=== PATIENT | female | born 1955 | race Caucasian/White ===

== ENCOUNTER 2019-10-30 06:41 | Emergency (ER) | payer OTHER, SELFPAY ==
--- NOTE | ~2019-10-30 | US_ITS ---
EXAMINATION: US venous doppler [facility] DATE: 10/30/2019 08:01 INDICATION: Left lower limb pain. TECHNIQUE: Grayscale ultrasound images without and with compression and Doppler ultrasound images of the left lower extremity veins were obtained. COMPARISON: Ultrasound 12/04/2014 FINDINGS: The visualized portions of left common femoral vein, profunda (deep) femoral vein, femoral vein, popl iteal vein, peroneal veins, posterior tibial veins, and greater saphenous vein outflow are patent. IMPRESSION: 1. No deep venous thrombosis. Reviewed, dictated and finalized at location A. 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
[2019-10-30 06:46] VITALS: BP 173/109; PULSE 88; RESP 18; TEMP 36.6; O2SAT 100
--- NOTE | 2019-10-30 07:15 | ED.LOWEXIN ---
HPI - Extremity Injury (Lower) General Chief Complaint: Extremity Injury, Lower Stated Complaint: pain left thigh Time Seen by Provider: 10/30/19 06:58 History of Present Illness HPI Narrative: Left thigh pain since yesterday. Located in the lateral thigh from the hip to the knee. No trauma. No change in activity. She tried tylenol without relief. SHe recently started on a low potassium diet . Related Data Home Medications Medication Instructions Recorded Confirmed hydrochlorothiazide 25 mg tablet 25 mg PO DAILY 09/15/19 losartan 100 mg tablet 100 mg PO DAILY 09/15/19 triamcinolone acetonide 0.1 % 1 applic TOPICAL BID 09/15/19 topical ointment Allergies Allergy/AdvReac Type Severity Reaction Status Date / Time No Known Allergies Allergy Verified 10/30/19 07:18 Review of Systems Review of Systems: All systems reviewed & are unremarkable except as noted in HPI and below Constitutional: Constitutional: Denies fever(s) and Denies weakness Cardiovascular: Cardiovascular: Denies chest pain Respiratory: Respiratory: Denies dyspnea Gastrointestinal: Gastrointestinal: Denies abdominal pain and Denies nausea Musculoskeletal: Musculoskeletal: Denies back pain and Denies arthralgias Neurologic: Denies numbness and Denies weakness [facility] Family History Family History (Updated 08/30/18 @ 10:35 by DOCTOR UNKNOWN) Mother Family history of lung cancer Social History Social History Smoking status: Former smoker Second hand tobacco smoke exposure: No Smoking end date: 09/03/97 Alcohol intake: current Gender identity (if verbalized by the patient): Female Exam Const: General: healthy appearing, no acute distress and alert Nutritional Appearance: well nourished Orientation/consciousness: patient oriented x3 HENMT: Head: normal to inspection Resp: Effort & Inspection: normal respiratory effort Cardio: Other: 2+ left DP GI: GI Palp: Yes Soft to palpation and No Tenderness to palpation present (GI) Skin: General skin exam: normal color Neuro: General: patient oriented x3, moves all extremities and no focal motor deficits Speech: normal speech Extrem: Other: left lateral thigh tenderness Course Vital Signs Vital signs: Vital Signs Temperature 36.6 C 10/30/19 06:46 Pulse Rate 88 10/30/19 06:46 Respiratory Rate 18 10/30/19 06:46 Blood Pressure 173/109 H 10/30/19 06:46 Pulse Oximetry 100 10/30/19 06:46 Temperature 36.6 C 10/30/19 06:46 Pulse Rate 82 10/30/19 08:45 Respiratory Rate 17 10/30/19 08:45 Blood Pressure 152/97 H 10/30/19 08:45 Pulse Oximetry 100 10/30/19 08:45 MDM - Extremity Injury (Lower) MDM Narrative Medical decision making narrative: DVT, IT band, Arthritis, Cramps, hypokalemia, other Medical Records Attestation: I reviewed the patient's medical records. Lab Data Attestation: I reviewed the patient's lab results. Result diagrams: 10/30/19 07:13 10/30/19 07:13 Labs: Lab Results 10/30/19 10/30/19 Range/Units 07:13 07:13 WBC 4.3 L (4.5-10.0) K/mm3 RBC 4.30 (4.2-5.4) M/mm3 Hgb 13.8 (12.0-15.0) g/dL Hct 40.3 (37.0-47.0) % MCV 93.7 (80-100) fl MCH 32.1 (26-34) pg MCHC 34.2 (32-36) g/dl RDW 11.8 (11.5-14.5) % Plt Count 287 (150-375) k/mm3 MPV 9.0 (7.4-10.4) fl Immature Gran % (Auto) 0.2 (0-0.5) % Neut % (Auto) 53.4 (45.5-73.1) % Lymph % (Auto) 34.8 (18.3-44.2) % Evangeline % (Auto) 10.5 H (2.6-8.5) % Eos % (Auto) 0.9 (0-4.4) % Baso % (Auto) 0.2 (0.2-1.2) % Lymph # (Auto) 1.49 (0.9-3.2) K/mm3 Evangeline # (Auto) 0.5 (0.1-0.6) K/mm3 Eos # (Auto) 0.0 (0-0.3) K/mm3 Baso # (Auto) 0.0 (0.0-0.1) K/mm3 Abs Immat Gran (auto) 0.01 (0.00-0.031) K/mm3 Absolute Neuts (auto) 2.3 (1.3-6.7) K/mm3 Absolute Nucleated RBC 0.0 (0.0-0.012) K/mm3 Nucleated RBC % 0.0 (0.0-0.2) % Sodium 134 L (137-145) mmol/L Potassium 3.6
[2019-10-30 07:19] LABS: Basophils Percent Auto 0.2 % (0.2-1.2); Eosinophils Percent Auto 0.9 % (0-4.4); Hematocrit 40.3 % (37.0-47.0); Hemoglobin 13.8 g/dL (12.0-15.0); Immature Granulocyte Absolute 0.01 K/mm3 (0.00-0.031); Immature Granulocyte Percent A 0.2 % (0-0.5); Lymphocytes Absolute Auto 1.49 K/mm3 (0.9-3.2); Lymphocytes Percent Auto 34.8 % (18.3-44.2); Mean Corpuscular HGB Conc 34.2 g/dl (32-36); Mean Corpuscular Hemoglobin 32.1 pg (26-34); Mean Corpuscular Volume 93.7 fl (80-100); Monocytes Absolute Auto 0.5 K/mm3 (0.1-0.6); Monocytes Percent Auto 10.5 % (2.6-8.5); Neutrophils Absolute Auto 2.3 K/mm3 (1.3-6.7); Neutrophils Percent Auto 53.4 % (45.5-73.1); Platelet Count Result 287 k/mm3 (150-375); Red Cell Distribution Width 11.8 % (11.5-14.5); White Blood Count 4.3 K/mm3 (4.5-10.0)
[2019-10-30] MEDS: IBUPROFEN 600 MG TABLET PO (07:19)
[2019-10-30 07:30] LABS: Blood Urea Nitrogen 11 mg/dL (7-17); Calcium 9.6 mg/dL (8.4-10.2); Carbon Dioxide 26 mmol/L (22-30); Chloride 91 mmol/L (98-107); Estimated CRCL calculation 65 ml/min; Estimated Glomerular Filt Rate > 60; Glucose 106 mg/dL (65-105); Magnesium 1.8 mg/dL (1.6-2.3); Potassium 3.6 mmol/L (3.4-5.0); Sodium 134 mmol/L (137-145)
[2019-10-30 08:45] VITALS: BP 152/97; PULSE 82; RESP 17; O2SAT 100
== END 2019-10-30 08:58 | disposition home or self-care (01) ==
PROVIDERS: Emergency Provider Emergency Medicine; PCP Family Medicine
DX: M79.652 Pain in left thigh (principal); Z87.891 Personal history of nicotine dependence
CPT/HCPCS: 36415; 80048; 83735; 85025; 93971; 99284; A9270

== ENCOUNTER 2019-11-04 09:56 | Outpatient (CLI) | payer OTHER, SELFPAY ==
--- NOTE | ~2019-11-04 | XR_ITS ---
XR lumbar spine 2-3V 11/04/2019 10:44 Indication: Low back pain radiating to the left Procedure: 3 views lumbar spine Comparison: No prior studies for comparison. Findings: Levoscoliosis centered at L2. There is disc narrowing at L2-3, L3-4 with prominent ventral osteophytes. There is lower lumbar facet hypertrophy. No acute fracture or traumatic malalignment. Th ere is grade 1 degenerative spondylolisthesis at L4-5. Levoscoliosis measures 20 degrees. Impression: 1: Moderate-severe lumbar spondylosis with levoscoliosis. Reviewed, dictated and finalized at location B. 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
== END 2019-11-04 09:57 | disposition home or self-care (01) ==
LOC: ANHIMG 10:04
PROVIDERS: PCP Family Medicine
DX: M47.26 Other spondylosis with radiculopathy, lumbar region (principal)
CPT/HCPCS: 72100

== ENCOUNTER 2023-05-17 14:29 | Outpatient (CLI) | payer MEDICARE, SELFPAY ==
[2023-05-17 16:12] LABS: Parathyroid Intact 21.8 pg/mL (7.5-53.5)
[2023-05-17 17:00] LABS: Hemoglobin A1C 5.9 % (<5.7)
== END 2023-05-17 14:30 | disposition home or self-care (01) ==
PROVIDERS: PCP Family Medicine; Visit Provider Physician Assistant Medical
DX: R73.03 Prediabetes (principal); E83.52 Hypercalcemia
CPT/HCPCS: 36415; 83036; 83970

== ENCOUNTER 2023-06-06 13:52 | Outpatient (CLI) | payer MEDICARE, SELFPAY ==
--- NOTE | ~2023-06-06 | MM_ITS ---
EXAMINATION: MM screening [facility] BI w carli HISTORY: Screening mammogram TECHNIQUE: Craniocaudal and mediolateral oblique 3-D tomosynthesis images were obtained and synthetic 2-D images were generated. CAD analysis was submitted and interpreted. COMPARISON: 11/26/2018, 11/19/2018, 04/10/2013, 04/01/2013 BREAST PARENCHYMAL COMPOSITION: There are scattered areas of fibroglandular density. FINDINGS: No suspicious mass, calcification, or architectural distortion are identified in either dirk ast to suggest malignancy. There has been no suspicious interval change. IMPRESSION: 1. No mammographic evidence of malignancy. 2. Recommend routine screening mammography in one year. BI-RADS Category 1: Negative Reviewed, dictated and finalized at location A.
== END 2023-06-06 13:53 | disposition home or self-care (01) ==
LOC: ANHIMG 13:56
PROVIDERS: PCP Family Medicine; Visit Provider Physician Assistant Medical
DX: Z12.31 Encounter for screening mammogram for malignant neoplasm of breast (principal)
CPT/HCPCS: 77063; 77067

== ENCOUNTER 2024-04-08 09:30 | Outpatient (CLI) | payer MEDICARE, SELFPAY ==
--- NOTE | ~2024-04-08 | XR_ITS ---
3 VIEWS LUMBAR SPINE Ordering provider: Laurie Altman PA-C History: . fall 2 weeks ago lbp with left leg pain . Comparison: November 04, 2019 FINDINGS: VERTEBRAL BODIES: No visible fracture or subluxation. Degenerative changes of the spine. DISK SPACES: Degenerative disc disease at the level of L2-L3 and L3-L4. Facet joint disease at the le dk of L4-L5 and L5-S1. SOFT TISSUES: Atherosclerotic changes of the aorta. IMPRESSION: No acute osseous abnormality lumbar spine. Multilevel degenerative disc disease. Reviewed, dictated and finalized at location A.
== END 2024-04-08 09:31 ==
PROVIDERS: PCP Family Medicine; Visit Provider Student in an Organized Health Care Education/Training Program
DX: M79.662 Pain in left lower leg (principal); M51.36 Other intervertebral disc degeneration, lumbar region
CPT/HCPCS: 72100

== ENCOUNTER 2024-08-06 13:53 | Outpatient (CLI) | payer MEDICARE, SELFPAY ==
--- NOTE | ~2024-08-06 | MM_ITS ---
EXAMINATION: MM screening [facility] BI w carli HISTORY: Screening TECHNIQUE: Craniocaudal and mediolateral oblique 3-D tomosynthesis images were obtained and synthetic 2-D images were generated. CAD analysis was submitted and interpreted. COMPARISON: Comparison to multiple prior studies sequentially, with oldest reviewed study dated 11/19. BREAST PARENCHYMAL COMPOSITION: Not dense: There are scattered areas of fibroglandular density. FINDINGS: There is no evidence of suspicious mass, calcification, or architectural distortion to sugg est malignancy in either breast. There has been no suspicious interval change. IMPRESSION: 1. No mammographic evidence of malignancy. 2. Recommend routine screening mammography in one year. BI-RADS Category 1: Negative Reviewed, dictated and finalized at location B. 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
== END 2024-08-06 13:54 | disposition home or self-care (01) ==
LOC: ANHIMG 13:54
PROVIDERS: PCP Family Medicine; Visit Provider Student in an Organized Health Care Education/Training Program
DX: Z12.31 Encounter for screening mammogram for malignant neoplasm of breast (principal)
CPT/HCPCS: 77063; 77067